=== PATIENT | male | born 2000 | race Asian ===

== ENCOUNTER 2021-04-08 11:53 | Outpatient (CLI) | payer BC ==
[2021-04-08 19:46] LABS: SARS-CoV-2 PCR by NAA Not Detected (NotDetected)
== END 2021-04-08 11:54 | disposition home or self-care (01) ==
LOC: LABBT 11:53
PROVIDERS: ATTEND Orthopaedic Surgery
DX: Z01.812 Encounter for preprocedural laboratory examination (principal); Z20.822 Contact with and (suspected) exposure to COVID-19
CPT/HCPCS: U0003; U0005

== ENCOUNTER 2021-04-10 06:19 | Day surgery (SDC) | payer BC ==
[2021-04-10] MEDS ORDERED: ceFAZolin 2 GM/DEX 5% 100 ML BAG ONE (07:52)
[2021-04-10] MEDS ORDERED: Fentanyl 100 MCG/2 ML VIAL ONE (09:01)
[2021-04-10] MEDS ORDERED: Lidocaine 1% PF 5 ML VIAL ONE (09:22)
[2021-04-10] MEDS ORDERED: Ondansetron PF 4 MG/2 ML Vial ONE (09:22)
[2021-04-10] MEDS ORDERED: Ketorolac Tromethamine 30 MG/ML VIAL ONE (09:22)
[2021-04-10] MEDS ORDERED: Dexamethasone 20 MG/5 ML VIAL ONE (09:22)
[2021-04-10] MEDS ORDERED: PROPOFOL 200 MG/20 ML VIAL ONE (09:22)
== END 2021-04-10 12:28 | disposition home or self-care (01) ==
LOC: SDC 06:19
PROVIDERS: ATTEND Orthopaedic Surgery
PROC: 0PSJXZZ Reposition Left Radius, External Approach (ICD-10-PCS; principal; 2021-04-10)
DX: S52.532A Colles' fracture of left radius, initial encounter for closed fracture (principal); W19.XXXA Unspecified fall, initial encounter; Y93.62 Activity, american flag or touch football
CPT/HCPCS: 76000; J1100; J1885; J2405; J2704; J3010